=== PATIENT | female | born 1985 | race Caucasian/White ===

== ENCOUNTER 2017-09-19 15:46 | Emergency (ER) | payer MEDICAID ==
[~2017-09-19] VITALS: Ht 165.1 cm; Wt 76.0 kg
[~2017-09-19 15:46] MED LIST: ELET20TA PO; METH-356 PO; METH750T87 PO; OXYC-302 PO; OXYC-307 PO; PREG300C PO; TIZA4CAP2 PO; TOPI25TA32 PO
[2017-09-19] MEDS ORDERED: [UNRECOGNIZED DRUG - CODE] PO (16:06)
[2017-09-19] MEDS ORDERED: ONDANSETRON 2MG/ML, 2ML ONE (16:11)
[2017-09-19] MEDS ORDERED: FAMOTIDINE 20 MG/2 ML ONE (16:11)
[2017-09-19] MEDS ORDERED: ONDANSETRON 2MG/ML, 2ML IVPush ONE (16:30)
[2017-09-19] MEDS ORDERED: SODIUM CHLORIDE 0.9% 1,000ML IVBOLUS ONE (16:30)
[2017-09-19] MEDS ORDERED: FAMOTIDINE 20 MG/2 ML IVP ONE (16:30)
[2017-09-19] MEDS ORDERED: SODIUM CHLORIDE FLUSH 10ML SYR IVF ONE (16:30)
[2017-09-19 16:39] LABS: BASOPHILS # (AUTO) 0.06 x10^3/uL (0-0.1); BASOPHILS % (AUTO) 1 % (0-1); EOSINOPHILS # (AUTO) 0.07 x10^3/uL (0-0.4); EOSINOPHILS % (AUTO) 1 % (1-7); LYMPHOCYTES # (AUTO) 1.65 x10^3/uL (1-3.4); LYMPHOCYTES % (AUTO) 19 % (22-44); MD NO; MEAN CORPUSCULAR HEMOGLOBIN 28.8 pg (27.0-34.8); MEAN CORPUSCULAR HGB CONC 33.4 g/dL (32.4-35.8); MEAN CORPUSCULAR VOLUME 86.3 fL (80-100); MONOCYTES # (AUTO) 0.47 x10^3/uL (0.2-0.8); MONOCYTES % (AUTO) 5 % (2-9); NEUTROPHILS # (AUTO) 6.66 x10^3/uL (1.8-6.8); NEUTROPHILS % (AUTO) 75 % (42-75); PLATELET COUNT 372 x10^3/uL (130-400); RED BLOOD COUNT 4.81 x10^6/uL (3.82-5.3); RED CELL DISTRIBUTION WIDTH 13.7 % (9.6-15.2)
[2017-09-19 16:44] LABS: ALBUMIN 3.7 g/dL (3.4-5.0); ANION GAP 5 mmol/L (5-15); CHLORIDE 109 mmol/L (98-107)
[2017-09-19 16:49] LABS: ALANINE AMINOTRANSFERASE 38 U/L (12-78); ALKALINE PHOSPHATASE 221 U/L (45-117); BILIRUBIN,TOTAL 0.3 mg/dL (0.2-1.0); CREATININE 0.68 mg/dL (0.55-1.02); TOTAL PROTEIN 7.8 g/dL (6.4-8.2)
[2017-09-19 17:39] LABS: CULTURE INDICATED? NO; MICROSCOPIC NOT IND
[2017-09-19] MEDS ORDERED: OMNIPAQUE 350 MG/ML, 100ML BOTTLE ONE (17:57)
[2017-09-19 18:21] VITALS: BP 94/56
== END 2017-09-19 19:20 | disposition home or self-care (01) ==
LOC: ED 19:10
DX: R10.11 Right upper quadrant pain (principal); R10.31 Right lower quadrant pain; Z90.710 Acquired absence of both cervix and uterus
CPT/HCPCS: 36415; 74177; 80053; 81003; 83690; 84703; 85025; 96361; 96374; 96375; 99285; J2405; J7030; Q9967; S0028

== ENCOUNTER 2017-11-03 11:48 | Emergency (ER) | payer MEDICAID ==
[~2017-11-03] VITALS: Ht 165.1 cm; Wt 78.5 kg
[~2017-11-03 11:48] MED LIST changes: +[UNRECOGNIZED DRUG - CODE] PO
[2017-11-03 11:55] VITALS: BP 109/71
== END 2017-11-03 12:38 | disposition home or self-care (01) ==
LOC: ED 12:15
DX: L08.9 Local infection of the skin and subcutaneous tissue, unspecified (principal)
CPT/HCPCS: 10060; 99283

== ENCOUNTER 2017-12-06 20:54 | Emergency (ER) | payer MEDICAID ==
[~2017-12-06] VITALS: Ht 165.1 cm; Wt 76.1 kg
[2017-12-06 21:13] VITALS: BP 100/62
[2017-12-06] MEDS ORDERED: KETOROLAC 30 MG/1 ML IM ONE (22:30)
[2017-12-06] MEDS ORDERED: METHOCARBAMOL 750 MG TABLET PO ONE (22:30)
[2017-12-06] MEDS ORDERED: METHOCARBAMOL 750 MG TABLET ONE (22:40)
[2017-12-06] MEDS ORDERED: KETOROLAC 30 MG/1 ML ONE (22:40)
== END 2017-12-06 23:23 | disposition home or self-care (01) ==
LOC: ED 23:14
DX: S29.012A Strain of muscle and tendon of back wall of thorax, initial encounter (principal); M54.2 Cervicalgia; X58.XXXA Exposure to other specified factors, initial encounter; Y93.89 Activity, other specified; Y92.89 Other specified places as the place of occurrence of the external cause; Y99.8 Other external cause status
CPT/HCPCS: 72072; 96372; 99284; J1885

== ENCOUNTER 2017-12-22 19:55 | Emergency (ER) | payer MEDICAID ==
[~2017-12-22] VITALS: Ht 165.1 cm; Wt 72.6 kg
[2017-12-22] MEDS ORDERED: MORP30CP12 PO (20:07)
[2017-12-22] MEDS ORDERED: LACO200T PO (20:07)
[2017-12-22] MEDS ORDERED: LEVE100020 PO (20:07)
[2017-12-22] MEDS ORDERED: SODIUM CHLORIDE 0.9% 1,000 ML IV ONE (20:20)
[2017-12-22] MEDS ORDERED: SODIUM CHLORIDE FLUSH 10ML SYR IVF ONE (20:30)
[2017-12-22] MEDS ORDERED: SODIUM CHLORIDE 0.9% 1,000ML IVBOLUS ONE (20:30)
[2017-12-22] MEDS ORDERED: HYDROcodone/APAP 5/325 TABLET PO ONE (20:30)
[2017-12-22] MEDS ORDERED: ONDANSETRON ODT 4 MG PO ONE (20:30)
[2017-12-22] MEDS ORDERED: HYDROcodone/APAP 5/325 TABLET ONE (20:32)
[2017-12-22] MEDS ORDERED: ONDANSETRON ODT 4 MG ONE (20:32)
[2017-12-22 20:56] LABS: BASOPHILS # (AUTO) 0.06 x10^3/uL (0-0.1); BASOPHILS % (AUTO) 1 % (0-1); EOSINOPHILS # (AUTO) 0.06 x10^3/uL (0-0.4); EOSINOPHILS % (AUTO) 1 % (1-7); LYMPHOCYTES # (AUTO) 1.74 x10^3/uL (1-3.4); LYMPHOCYTES % (AUTO) 27 % (22-44); MD NO; MEAN CORPUSCULAR HEMOGLOBIN 29.1 pg (27.0-34.8); MEAN CORPUSCULAR HGB CONC 33.9 g/dL (32.4-35.8); MEAN CORPUSCULAR VOLUME 85.9 fL (80-100); MEAN PLATELET VOLUME 9.3 fL (7.4-10.4); MONOCYTES # (AUTO) 0.92 x10^3/uL (0.2-0.8); MONOCYTES % (AUTO) 14 % (2-9); NEUTROPHILS # (AUTO) 3.65 x10^3/uL (1.8-6.8); NEUTROPHILS % (AUTO) 57 % (42-75); PLATELET COUNT 263 x10^3/uL (130-400); RED BLOOD COUNT 4.67 x10^6/uL (3.82-5.3); RED CELL DISTRIBUTION WIDTH 13.6 % (9.6-15.2)
[2017-12-22 20:57] LABS: ALBUMIN 3.6 g/dL (3.4-5.0); ANION GAP 8 mmol/L (5-15); CALCIUM 8.6 mg/dL (8.5-10.1); CHLORIDE 111 mmol/L (98-107); CREATININE 0.81 mg/dL (0.55-1.02)
[2017-12-22 21:31] LABS: MICROSCOPIC INDICATED
[2017-12-22 21:32] VITALS: BP 95/43
[2017-12-22 21:40] LABS: CULTURE INDICATED? NO
== END 2017-12-22 22:47 | disposition home or self-care (01) ==
LOC: ED 20:57
DX: J06.9 Acute upper respiratory infection, unspecified (principal); R11.2 Nausea with vomiting, unspecified; J45.909 Unspecified asthma, uncomplicated; F17.200 Nicotine dependence, unspecified, uncomplicated; Z98.51 Tubal ligation status; Z90.710 Acquired absence of both cervix and uterus
CPT/HCPCS: 36415; 71046; 80048; 81001; 82040; 85025; 93005; 99285; J7030; Q0162

== ENCOUNTER 2018-03-17 11:18 | Emergency (ER) | payer MEDICAID ==
[~2018-03-17] VITALS: Ht 165.1 cm; Wt 68.3 kg
[~2018-03-17 11:18] MED LIST changes: +LACO200T PO; +LEVE100020 PO; +MORP30CP12 PO
[2018-03-17 11:21] VITALS: BP 100/61
[2018-03-17] MEDS ORDERED: TIZA4TAB PO (11:26)
[2018-03-17] MEDS ORDERED: SODIUM CHLORIDE 0.9% 1,000ML IVBOLUS ONE (12:00)
[2018-03-17] MEDS ORDERED: SODIUM CHLORIDE FLUSH 10ML SYR IVF ONE (12:00)
[2018-03-17] MEDS ORDERED: MORPHINE SULFATE 4 MG/ML, 1ML IVPush PRN (12:00)
[2018-03-17] MEDS ORDERED: MORPHINE SULFATE 4 MG/ML, 1ML ONE (12:06)
[2018-03-17 12:09] LABS: BASOPHILS # (AUTO) 0.07 x10^3/uL (0-0.1); BASOPHILS % (AUTO) 1 % (0-1); EOSINOPHILS # (AUTO) 0.08 x10^3/uL (0-0.4); EOSINOPHILS % (AUTO) 1 % (1-7); LYMPHOCYTES # (AUTO) 1.38 x10^3/uL (1-3.4); LYMPHOCYTES % (AUTO) 20 % (22-44); MD NO; MEAN CORPUSCULAR HEMOGLOBIN 29.5 pg (27.0-34.8); MEAN CORPUSCULAR HGB CONC 33.7 g/dL (32.4-35.8); MEAN CORPUSCULAR VOLUME 87.6 fL (80-100); MEAN PLATELET VOLUME 10.6 fL (7.4-10.4); MONOCYTES # (AUTO) 0.42 x10^3/uL (0.2-0.8); MONOCYTES % (AUTO) 6 % (2-9); NEUTROPHILS # (AUTO) 5.04 x10^3/uL (1.8-6.8); NEUTROPHILS % (AUTO) 72 % (42-75); PLATELET COUNT 185 x10^3/uL (130-400); RED BLOOD COUNT 4.26 x10^6/uL (3.82-5.3)
[2018-03-17 12:19] LABS: ALANINE AMINOTRANSFERASE 13 U/L (12-78); ALBUMIN 3.5 g/dL (3.4-5.0); ANION GAP 8 mmol/L (5-15); CALCIUM 8.4 mg/dL (8.5-10.1); CHLORIDE 110 mmol/L (98-107)
[2018-03-17 12:22] LABS: ALKALINE PHOSPHATASE 94 U/L (45-117); BILIRUBIN,TOTAL 0.5 mg/dL (0.2-1.0); CREATININE 0.74 mg/dL (0.55-1.02); TOTAL PROTEIN 6.5 g/dL (6.4-8.2)
[2018-03-17 12:37] LABS: MICROSCOPIC INDICATED
[2018-03-17 12:54] LABS: CULTURE INDICATED? YES
== END 2018-03-17 14:21 | disposition home or self-care (01) ==
LOC: ED 13:45
DX: R10.30 Lower abdominal pain, unspecified (principal); F17.200 Nicotine dependence, unspecified, uncomplicated; J45.909 Unspecified asthma, uncomplicated; G40.909 Epilepsy, unspecified, not intractable, without status epilepticus; Z98.51 Tubal ligation status
CPT/HCPCS: 36415; 80053; 81001; 85025; 87086; 93005; 96374; 99285; J7030

== ENCOUNTER 2018-04-17 17:38 | Emergency (ER) | payer MEDICAID ==
[~2018-04-17] VITALS: Ht 162.6 cm; Wt 65.0 kg
[~2018-04-17 17:38] MED LIST changes: +TIZA4TAB PO
[2018-04-17] MEDS ORDERED: OXYcodone/APAP 10/325MG TABLET ONE (18:46)
[2018-04-17] MEDS ORDERED: OXYcodone/APAP 10/325MG TABLET PO ONE (19:00)
[2018-04-17 20:05] VITALS: BP 108/57
[2018-04-17] MEDS ORDERED: KETOROLAC 30 MG/1 ML ONE (20:13)
[2018-04-17] MEDS ORDERED: HYDROmorphone 2 MG/ML, 1ML ONE (20:13)
[2018-04-17] MEDS ORDERED: ONDANSETRON 2MG/ML, 2ML ONE (20:13)
[2018-04-17] MEDS ORDERED: ONDANSETRON 2MG/ML, 2ML IVPush ONE (20:30)
[2018-04-17] MEDS ORDERED: HYDROmorphone 1 MG/ML, 1ML IM ONE (20:30)
[2018-04-17] MEDS ORDERED: KETOROLAC 30 MG/1 ML IVPush ONE (20:30)
[2018-04-17] MEDS ORDERED: OXYcodone IR 5MG TABLET PO ONE (20:30)
== END 2018-04-17 20:34 | disposition home or self-care (01) ==
LOC: ED 20:28
DX: S30.0XXA Contusion of lower back and pelvis, initial encounter (principal); J45.909 Unspecified asthma, uncomplicated; G40.909 Epilepsy, unspecified, not intractable, without status epilepticus; F17.200 Nicotine dependence, unspecified, uncomplicated; R11.10 Vomiting, unspecified; Z90.710 Acquired absence of both cervix and uterus; Z98.51 Tubal ligation status; Z90.49 Acquired absence of other specified parts of digestive tract; W01.0XXA Fall on same level from slipping, tripping and stumbling without subsequent striking against object, initial encounter; Y93.89 Activity, other specified; Y92.488 Other paved roadways as the place of occurrence of the external cause; Y99.8 Other external cause status
CPT/HCPCS: 72110; 93005; 96372; 96374; 96375; 99284; J1170; J1885; J2405

== ENCOUNTER 2018-04-30 20:20 | Emergency (ER) | payer MEDICAID ==
[~2018-04-30] VITALS: Ht 165.1 cm; Wt 65.0 kg
[2018-04-30 20:22] VITALS: BP 114/75
[2018-04-30] MEDS ORDERED: LIDOCAINE 2%, 10ML INFIL ONE (21:00)
[2018-04-30] MEDS ORDERED: KETOROLAC 30 MG/1 ML IM ONE (22:00)
== END 2018-04-30 21:56 | disposition home or self-care (01) ==
LOC: ED 21:47
DX: L72.3 Sebaceous cyst (principal); G40.909 Epilepsy, unspecified, not intractable, without status epilepticus; J45.909 Unspecified asthma, uncomplicated
CPT/HCPCS: 76882; 96372; 99284; J1885

== ENCOUNTER 2018-06-09 10:29 | Emergency (ER) | payer MEDICAID ==
[~2018-06-09] VITALS: Ht 152.4 cm; Wt 63.0 kg
[2018-06-09] MEDS ORDERED: ALBU8.5H8 INH (10:47)
[2018-06-09] MEDS ORDERED: LEVE100020 PO (10:47)
[2018-06-09] MEDS ORDERED: IBUPROFEN 200 MG TABLET PO ONE (11:00)
[2018-06-09] MEDS ORDERED: IBUPROFEN 200 MG TABLET ONE (11:14)
[2018-06-09 12:21] VITALS: BP 98/57
== END 2018-06-09 12:23 | disposition home or self-care (01) ==
LOC: ED 11:20
DX: R07.89 Other chest pain (principal); M94.0 Chondrocostal junction syndrome [Tietze]; J01.00 Acute maxillary sinusitis, unspecified; F17.210 Nicotine dependence, cigarettes, uncomplicated; G40.909 Epilepsy, unspecified, not intractable, without status epilepticus
CPT/HCPCS: 71046; 93005; 99284

== ENCOUNTER 2018-09-21 16:05 | Emergency (ER) | payer MEDICAID ==
[~2018-09-21] VITALS: Ht 165.1 cm; Wt 72.0 kg
[~2018-09-21 16:05] MED LIST changes: +ALBU8.5H8 INH; -METH-356 PO; +METH10TA2 PO
[2018-09-21] MEDS ORDERED: OXYC-307 PO (16:44)
--- NOTE | 2018-09-21 16:57 | NUR ---
REPORT FROM VERONICA DELA CRUZ, ASSUME CARE OF PT AT THIS TIME.
[2018-09-21] MEDS ORDERED: KETOROLAC 30 MG/1 ML ONE (17:11)
--- NOTE | 2018-09-21 17:15 | NUR ---
PT MEDICATED PER ERP ORDER.
[2018-09-21] MEDS ORDERED: KETOROLAC 30 MG/1 ML IM ONE (17:30)
[2018-09-21 18:14] VITALS: BP 124/87
== END 2018-09-21 18:16 | disposition home or self-care (01) ==
LOC: ED 17:53
DX: M94.0 Chondrocostal junction syndrome [Tietze] (principal); G40.909 Epilepsy, unspecified, not intractable, without status epilepticus; F17.200 Nicotine dependence, unspecified, uncomplicated; Z90.89 Acquired absence of other organs; Z90.710 Acquired absence of both cervix and uterus; Z98.41 Cataract extraction status, right eye; W19.XXXA Unspecified fall, initial encounter; Y93.89 Activity, other specified; Y92.89 Other specified places as the place of occurrence of the external cause; Y99.8 Other external cause status
CPT/HCPCS: 71101; 96372; 99283; J1885

== ENCOUNTER 2019-07-04 17:13 | Emergency (ER) | payer MEDICAID ==
[~2019-07-04] VITALS: Ht 165.1 cm; Wt 74.7 kg
[~2019-07-04 17:13] MED LIST changes: -TIZA4TAB PO; +TIZA4TAB2 PO
[2019-07-04 17:17] VITALS: BP 93/61
--- NOTE | 2019-07-04 17:34 | NUR ---
pt states abcess right buttock at crease first noticed this weekend. pt also presenting drowsy, stating unknown why
[2019-07-04] MEDS ORDERED: SULFAMETH./TRIMETHOPRIM DS 800MG/160MG TABLET ONE (17:43)
[2019-07-04] MEDS ORDERED: SULFAMETH./TRIMETHOPRIM DS 800MG/160MG TABLET PO ONE (18:00)
== END 2019-07-04 18:01 | disposition home or self-care (01) ==
LOC: ED 17:55
DX: L02.31 Cutaneous abscess of buttock (principal); G89.29 Other chronic pain; J45.909 Unspecified asthma, uncomplicated; F17.200 Nicotine dependence, unspecified, uncomplicated; Z90.49 Acquired absence of other specified parts of digestive tract; Z90.710 Acquired absence of both cervix and uterus
CPT/HCPCS: 99283

== ENCOUNTER 2019-07-13 18:26 | Emergency (ER) | payer MEDICAID ==
[~2019-07-13] VITALS: Ht 165.1 cm; Wt 74.5 kg
[2019-07-13 18:36] VITALS: BP 118/74
[2019-07-13] MEDS ORDERED: LIDOCAINE-MPF 1%, 5ML ONE (19:12)
--- NOTE | 2019-07-13 19:30 | NUR ---
Dressing applied to wound/tdap updated
== END 2019-07-13 19:46 | disposition home or self-care (01) ==
LOC: ED 19:45
DX: L02.31 Cutaneous abscess of buttock (principal); Z72.9 Problem related to lifestyle, unspecified; F17.210 Nicotine dependence, cigarettes, uncomplicated; J45.909 Unspecified asthma, uncomplicated; G40.909 Epilepsy, unspecified, not intractable, without status epilepticus; Z90.49 Acquired absence of other specified parts of digestive tract; Z90.710 Acquired absence of both cervix and uterus
CPT/HCPCS: 10060

== ENCOUNTER 2020-04-14 09:26 | Emergency (ER) | payer MEDICAID ==
[~2020-04-14] VITALS: Ht 165.1 cm; Wt 73.7 kg
[2020-04-14 09:28] VITALS: BP 120/82
[2020-04-14] MEDS ORDERED: DIPHENHYDRAMINE 25 MG CAPSULE ONE (09:48)
[2020-04-14] MEDS ORDERED: FAMOTIDINE 20 MG TABLET ONE (09:48)
[2020-04-14] MEDS ORDERED: EPINEPHRINE 1 MG/ML, 1ML ONE (09:48)
[2020-04-14] MEDS ORDERED: FAMOTIDINE 20 MG TABLET PO ONE (10:00)
[2020-04-14] MEDS ORDERED: DIPHENHYDRAMINE 25 MG CAPSULE PO ONE (10:00)
[2020-04-14] MEDS ORDERED: EPINEPHRINE 1 MG/ML, 1ML SQ ONE (10:00)
== END 2020-04-14 11:15 | disposition home or self-care (01) ==
LOC: ED 09:46
DX: L50.9 Urticaria, unspecified (principal); Z90.49 Acquired absence of other specified parts of digestive tract; Z90.710 Acquired absence of both cervix and uterus; Z98.51 Tubal ligation status
CPT/HCPCS: 96372; 99284; J0171; J7512; Q0163

== ENCOUNTER 2020-05-26 12:20 | Emergency (ER) | payer MEDICAID ==
[~2020-05-26] VITALS: Ht 165.1 cm; Wt 72.9 kg
[2020-05-26] MEDS ORDERED: KETOROLAC 30 MG/1 ML IM ONE (13:00)
[2020-05-26] MEDS ORDERED: METHOCARBAMOL 750 MG TABLET PO ONE (13:00)
[2020-05-26] MEDS ORDERED: METHOCARBAMOL 750 MG TABLET ONE (13:08)
[2020-05-26] MEDS ORDERED: KETOROLAC 30 MG/1 ML ONE (13:08)
[2020-05-26 13:42] VITALS: BP 102/62
== END 2020-05-26 14:18 | disposition home or self-care (01) ==
LOC: ED 13:07
DX: S46.811A Strain of other muscles, fascia and tendons at shoulder and upper arm level, right arm, initial encounter (principal); S16.1XXA Strain of muscle, fascia and tendon at neck level, initial encounter; G40.909 Epilepsy, unspecified, not intractable, without status epilepticus; X50.0XXA Overexertion from strenuous movement or load, initial encounter; Y93.89 Activity, other specified; Y92.89 Other specified places as the place of occurrence of the external cause; Y99.8 Other external cause status
CPT/HCPCS: 96372; 99283; J1885